=== PATIENT | male | born 1965 | race Two or more races ===

== ENCOUNTER 2019-09-24 21:33 | Emergency (ER) | payer BC ==
[~2019-09-24] VITALS: Ht 175.3 cm; Wt 69.0 kg
[2019-09-24] MEDS ORDERED: MORPHINE SULFATE 4 MG/ML CPJ (NOT FOR IM USE) IV STA (22:45)
[2019-09-24] MEDS ORDERED: ONDANSETRON HCL 4MG/2ML INJ IV STA (22:45)
[2019-09-24] MEDS ORDERED: SODIUM CHLORIDE 0.9% 1,000 ML IV ONE (22:45)
[2019-09-25 01:30] VITALS: BP 125/80
== END 2019-09-25 01:31 | disposition home or self-care (01) ==
LOC: ER 21:33
DX: S00.03XA Contusion of scalp, initial encounter (principal); S00.11XA Contusion of right eyelid and periocular area, initial encounter; R55 Syncope and collapse; W01.0XXA Fall on same level from slipping, tripping and stumbling without subsequent striking against object, initial encounter; Y93.89 Activity, other specified; Y92.89 Other specified places as the place of occurrence of the external cause; Y99.8 Other external cause status
CPT/HCPCS: 70450; 96361; 96374; 96375; 99284; J2270; J2405; J7030; Z7610